=== PATIENT | female | born 1935 | race Caucasian/White ===

== ENCOUNTER → 2024-08-31 | Outpatient (CLI) | payer MEDICARE ==
--- NOTE | 2024-08-31 16:30 | XR ---
EXAMINATION TYPE: XR ribs LT DATE OF EXAM: 08/31/2024 4:14 PM COMPARISON: 08/31/2024 CLINICAL INDICATION: Female, 89 years old with history of R07.82 INTERCOSTAL PAIN; [facility] TECHNIQUE: XR ribs LT; Frontal and oblique views of the ribs with frontal chest radiograph. FINDINGS: Degeneration changes of the left shoulder. Multiple surgical clips present. Evaluation limi tennille due to overlying calcifications. No displaced rib fracture definitely visualized. Atherosclerosis of the arterial vasculature. IMPRESSION: Limited evaluation due to overlapping structures and calcifications. No displaced rib fracture defini tely visualized. If there remains concern consider CT. [facility], , 08/31/2024 4:28 PM
== END | disposition home or self-care (01) ==
LOC: RADXRMAIN 15:54
PROVIDERS: ATTEND Internal Medicine Geriatric Medicine
DX: R07.82 Intercostal pain (principal)